=== PATIENT | female | born 1960 | race Caucasian/White ===

== ENCOUNTER 2016-11-16 13:28 | Emergency (ER) | payer OTHER ==
[2016-11-16 13:50] VITALS: TEMP 98.4
--- NOTE | 2016-11-16 14:37 | EDPHY ---
H & P Time Seen by Provider: 11/16/16 13:35 HPI/ROS: CHIEF COMPLAINT: Right foot pain HISTORY OF PRESENT ILLNESS: 56-year-old female presents to the emergency department by private vehicle with pain in her right foot. The patient denies any known trauma or injury. She states that she has an avid runner and is here visiting from [place] for the iron [place] in 2 days. The patient states that she is having difficulty walking because of the pain in her right foot. The patient was advised to come to the emergency department for x-rays rule out stress fracture. ROS: Denies numbness or tingling in her feet or her toes, pain in her right ankle or calf. Past Medical/Surgical History: Arthritis, migraine headaches Social History: from [place] Smoking Status: Never smoked Physical Exam: On examination there is no swelling or redness noted to the right foot. She does have mild pain with palpation especially between the 2nd and 3rd metatarsal heads and 1st and 2nd metatarsal heads. No palpable deformity. Full range of motion of her toes. Normal sensation to light touch with normal 2 point discrimination. Strong dorsalis pedis pulse on the dorsal aspect of the right foot. Right ankle is nontender. Right calf is nontender. Constitutional: Initial Vital Signs Temperature (C) 36.9 C 11/16/16 13:45 Heart Rate 85 11/16/16 13:45 Respiratory Rate 18 11/16/16 13:45 Blood Pressure 121/80 H 11/16/16 13:45 O2 Sat (%) 97 11/16/16 13:45 O2 Delivery Mode Room Air Allergies/Adverse Reactions: Penicillins Allergy (Mild, Verified 11/16/16 13:50) Rash Home Medications: Medication Instructions Recorded Sumatriptan Succinate [Imitrex] 4 mg SQ 11/16/16 MDM/Departure - MDM Imaging Results: Imaging Impressions Foot X-Ray 11/16/16 13:56 Impression: There is no acute osseous abnormality. ED Course/Re-evaluation: 56-year-old female presents with right foot pain. X-rays which were weight-bearing films did not reveal any evidence of obvious stress fracture obvious abnormality. She was offered postop shoe, however she declined because she did not want to pay for it. She was given referral to molding machine tender as well as on-call orthopedic surgeon. She was instructed to return if she developed any worsening symptoms. She was encouraged to do activities as tolerated. - Depart Disposition: Home, Routine, Self-Care Clinical Impression: Right foot pain Condition: Good Instructions: Arthralgia (ED) Additional Instructions: Postop shoe for comfort and support. Weightbear and activity as tolerated. Ibuprofen 600 mg every 8 hours as needed for pain. Follow up with orthopedic surgeon or molding machine tender as discussed. You may need repeat imaging the of your right foot as discussed if your pain is persisting. Referrals: Benjamín Nicholas DPM [Doctor of Podiatric Medicine] - As per Instructions John Cormier MD [Medical Doctor] - As per Instructions
[2016-11-16 15:05] VITALS: BP 118/72; PULSE 78; RESP 16; O2SAT 96
== END 2016-11-16 15:04 | disposition home or self-care (01) ==
DX: M79.671 Pain in right foot (principal)